=== PATIENT | female | born 1950 | race Caucasian/White ===

== ENCOUNTER → 2017-03-20 | Outpatient (CLI) | payer OTHER ==
--- NOTE | 2017-03-20 09:39 | BD ---
EXAMINATION TYPE: MG DEXA axial skeleton. DATE OF EXAM: 03/20/2017 COMPARISON: DEXA bone scan May 09, 2015. CLINICAL HISTORY: Z78.0 POST MENOPAUSALW/O HRT Height: 61 Weight: 217 FRAX RISK QUESTIONS: Alcohol (3 or more units per day): NO Family History (Parent hip fracture): NO Glucocorticoids (More than 3mos): NO (Ex: prednisone, prednisolone, methylprednisolone, dexamethasone, and hydrocortisone). History of Fracture in Adulthood: NO Secondary Osteoporosis: NO 1. Type 1 Diabetes: NO 2. Hyperthyroidism: NO 3. Menopause before 45: NO 4. Malnutrition: NO 5. Chronic liver disease: NO Rheumatoid Arthritis: NO Current Tobacco Use: NO RISK FACTORS HISTORY OF: History of Wrist Fracture: WRIST AND LT HAND IN HER 20'S When: 1978 Family History of Osteoporosis: NONE KNOWN Active: YES Diet low in dairy products/other sources of calcium: NO Postmenopausal woman: 53 YRS OLD Hyperparathyroidism: NO Adrenal Insufficiency: NO MEDICATIONS: Osteoporosis Medications: TRIED FOSAMAX 14 YRS AGO FOR ABOUT 6 MOS Additional Medications: BP MEDS, STATINS FOR CHOLESTEROL, REFLUX MEDS, CALCIUM WITH D, MULTIVITAMIN Additional History: HYPERTENSION, REFLUX, ELEVATED CHOLESTEROL EXAM MEASUREMENTS: Bone mineral densitometry was performed using the [employer] System. Bone mineral density as measured about the Lumbar spine is: ----- L1-L4(G/cm2): 1.060 T Score Values are as follows: ----- L1: -1.8 ----- L2: -1.2 ----- L3: 0.2 ----- L4: -1.4 ----- L1-L4: -1.0 Bone mineral density has: Increased 0.6% since study of: 05.09.2015 Bone mineral density about the R hip (g/cm2): 0.919 Bone mineral density about the L hip (g/cm2): 0.932 T Score values are as follows: -----R Neck: -1.2 -----L Neck: -1.4 -----R Total: -0.7 -----L Total: -0.6 Bone mineral density has: Increased 3.8% since study of: 05.09.2015 FRAX%'S: THERE IS A 12.4% CHANCE OF A MAJOR OSTEOPOROTIC FX AND A 1.1% CHANCE OF HIP FX.....PROBABI LITY IN 10 YRS TIME IMPRESSION: Osteopenia (T Score between -2.5 and -1 as noted by T score values in the low back and both hips deuce ins present. Bone density fairly stable from prior study. There remains slightly increased risk of fracture and the patient may be considered for treatment. Re-Screen 2-5 years. NOTE: T-SCORE=SD OF THE YOUNG ADULT MEAN.
--- NOTE | 2017-03-23 07:30 | MM ---
Reason for exam: screening (asymptomatic). Last mammogram was performed 1 year and 10 months ago. History: Patient is postmenopausal. Physical Findings: A clinical breast exam by your physician is recommended on an annual basis and results should be correlated with mammographic findings. MG Screening Mammo w CAD Bilateral CC and MLO view(s) were taken. Prior study comparison: May 09, 2015, bilateral MG screening mammo w CAD. January 16, 2010, bilateral digital screening mammogram. There are scattered fibroglandular densities. Stable benign calcifications in the left breast. There is no discrete abnormality. No significant changes when compared with prior studies. ASSESSMENT: Benign, BI-RAD 2 RECOMMENDATION: Routine screening mammogram of both breasts in 1 year.
== END ==
LOC: RADMAMWWP 07:57
PROVIDERS: ATTEND Family Medicine
DX: Z12.31 Encounter for screening mammogram for malignant neoplasm of breast (principal); M85.851 Other specified disorders of bone density and structure, right thigh; M85.852 Other specified disorders of bone density and structure, left thigh; Z78.0 Asymptomatic menopausal state; Z13.820 Encounter for screening for osteoporosis
CPT/HCPCS: 77080; G0202

== ENCOUNTER → 2018-06-25 | Outpatient (CLI) | payer OTHER ==
--- NOTE | 2018-06-25 11:21 | MM ---
Reason for exam: screening (asymptomatic). Last mammogram was performed 1 year and 3 months ago. History: Patient is postmenopausal. Physical Findings: A clinical breast exam by your physician is recommended on an annual basis and results should be correlated with mammographic findings. MG Screening Mammo w CAD Bilateral CC and MLO view(s) were taken. Prior study comparison: March 20, 2017, bilateral MG screening mammo w CAD. May 09, 2015, bilateral MG screening mammo w CAD. There are scattered fibroglandular densities. No significant changes when compared with prior studies. ASSESSMENT: Benign, BI-RAD 2 RECOMMENDATION: Routine screening mammogram of both breasts in 1 year.
== END | disposition home or self-care (01) ==
LOC: RADMAMWWP 07:48
PROVIDERS: ATTEND Family Medicine
DX: Z12.31 Encounter for screening mammogram for malignant neoplasm of breast (principal)
CPT/HCPCS: 77067